=== PATIENT | male | born 1955 | race Caucasian/White ===

== ENCOUNTER → 2016-05-20 | Outpatient (CLI) | payer BC ==
--- NOTE | 2016-05-20 14:34 | KCIC ---
Examination: Two views of the chest. HISTORY History of pneumonia, cough. COMPARISON None available Findings: Cardiomediastinal silhouette grossly appears unremarkable. There is no acute infiltrate or visualized pneumothorax identified. IMPRESSION No acute cardiopulmonary findings. Electronically signed by: Too Glass (May 20, 2016 14:32:38)
== END | disposition home or self-care (01) ==
LOC: KCIC 14:04
PROVIDERS: ATTEND Family Medicine
DX: R05 Cough (principal); Z87.01 Personal history of pneumonia (recurrent)
CPT/HCPCS: 71020

== ENCOUNTER → 2016-09-23 | Outpatient (CLI) | payer BC ==
--- NOTE | 2016-09-23 15:50 | KCIC ---
ANKLE RIGHT 3V History: Chronic right ankle pain Comparison: August 15, 2011 Findings: 3 views of the right ankle are submitted. No acute fracture or dislocation is identified. There is a round focus of lucency of the lateral superior talus, corresponds with site of a cyst seen on previous August 26, 2011 MRI exam. There are dorsal and plantar calcaneal enthesophytes. Impression: 1. There is again cyst of the medial talar dome. Electronically signed by: Phillip Moore MD (09/23/2016 3:47 PM)
--- NOTE | 2016-09-23 15:52 | KCIC ---
ELBOW LEFT 3V History: Severe left medial elbow pain and swelling for 2 to 3 days, no known injury Findings: 3 views of the left elbow are submitted, no previous exam available. No acute fracture or dislocation is identified. There is prominent enthesophyte emanating from the olecranon process. There is likely some soft tissue swelling present. There is relative displacement of the anterior fat pad of the elbow. Impression: 1. No acute osseous abnormality is identified. There is displacement of the anterior fat-pad of the elbow which could be due to the presence of joint effusion. There is nonspecific soft tissue swelling. Electronically signed by: Phillip Moore MD (09/23/2016 3:49 PM)
== END | disposition home or self-care (01) ==
LOC: KCIC 15:03
PROVIDERS: ATTEND Nurse Practitioner Family
DX: M25.522 Pain in left elbow (principal); M25.571 Pain in right ankle and joints of right foot; G89.29 Other chronic pain
CPT/HCPCS: 73080; 73610

== ENCOUNTER → 2021-04-01 | Outpatient (CLI) | payer BC ==
--- NOTE | 2021-04-01 15:18 | KCIC ---
EXAM: XR THORACIC SPINE 3VIEWS, XR LUMBAR SPINE 4+V. HISTORY: Back and right flank pain. COMPARISON: None. FINDINGS: Thoracic alignment is maintained. No fractures are identified. Mid thoracic degenerative di sc disease appears mild. There is diffuse mild endplate remodeling. There is slight grade 1 anterolisthesis at L4-5 from facet osteoarthritis. Degenerative disc disease appears mild at L4-5 and moderate at L5-S1. No fractures are identified. Cholecystectomy clips are no vani. IMPRESSION: 1. Grade 1 anterolisthesis at L4-5 from facet osteoarthritis. 2. Degenerative disc disease is moderate at L5-S1, mild at L4-5 and mild within the mid thoracic spin e. Electronically signed by: Romeo Omalley MD (04/01/2021 3:16 PM) [id number]
== END ==
LOC: KCIC 10:16
PROVIDERS: ATTEND Nurse Practitioner Family
DX: M47.816 Spondylosis without myelopathy or radiculopathy, lumbar region (principal); M43.16 Spondylolisthesis, lumbar region; M51.37 Other intervertebral disc degeneration, lumbosacral region; M51.34 Other intervertebral disc degeneration, thoracic region; Z90.49 Acquired absence of other specified parts of digestive tract
CPT/HCPCS: 72072; 72110